=== PATIENT | female | born 1980 | race Two or more races ===

== ENCOUNTER 2019-03-14 22:41 | Inpatient (IN) | payer SELFPAY ==
[~2019-03-14 22:41] MED LIST: FOLI1TAB16 PO; PANT40TA2 PO; THIA100T13 PO
[2019-03-14] MEDS ORDERED: CEFTRIAXONE 1GM BAG (ER ONLY) 50 ML IV ONE ×2 (23:23→23:30)
[2019-03-14] MEDS ORDERED: IV NS 0.9% 500 ML BAG IV ONE (23:30)
[2019-03-15] MEDS ORDERED: POTASSIUM CHLORIDE 20 MEQ TAB.PRT.SR PO ONE ×2 (01:00→01:08)
[2019-03-15] MEDS ORDERED: ONDANSETRON HCL/PF 4 MG/2 ML VIAL IVP PRN (02:30)
[2019-03-15] MEDS ORDERED: Z GUARD REMEDY 2 OZ OINT TP PRN (02:30)
[2019-03-15] MEDS: IV NS 0.9% 1,000 ML IV PRN (03:14)
[2019-03-15] MEDS ORDERED: PANTOPRAZOLE 40 MG VIAL IV SCH (09:00)
[2019-03-15] MEDS: NEXIUM 40 MG VIAL IV SCH ×2 (09:58→21:10)
[2019-03-15] MEDS: Magnesium 1GM/D5W 100ML PREMIX 100 ML IV SCH ×2 (11:10→13:24)
[2019-03-15] MEDS: POTASSIUM CHLORIDE 20 MEQ TAB.PRT.SR PO SCH ×2 (13:24→15:24)
[2019-03-15] MEDS ORDERED: NEUTRA PHOS 1 POWD.PACKET NG ONE (14:00)
[2019-03-15] MEDS: CEFTRIAXONE 2 G in IV D5W 100 ML IV SCH (22:02)
[2019-03-16] MEDS: IV NS 0.9% 1,000 ML IV PRN (05:27)
[2019-03-16] MEDS: NEXIUM 40 MG VIAL IV SCH ×2 (08:55→20:38)
[2019-03-16] MEDS ORDERED: POTASSIUM CHLORIDE 20 MEQ TAB.PRT.SR PO ONE (11:00)
[2019-03-16] MEDS: LACTULOSE 10 G/15 ML UDC (PYXIS) PO PRN (15:48)
[2019-03-16] MEDS: CEFTRIAXONE 2 G in IV D5W 100 ML IV SCH (22:19)
[2019-03-17] MEDS: NEXIUM 40 MG VIAL IV SCH ×2 (09:16→21:30)
[2019-03-17] MEDS: POTASSIUM CL. PREMIX PERIPHER. 50 ML IV SCH ×4 (14:04→17:12)
[2019-03-17] MEDS: LACTULOSE 10 G/15 ML UDC (PYXIS) PO PRN ×2 (14:20→21:40)
[2019-03-17] MEDS: IV NS 0.9% 1,000 ML IV PRN (15:36)
[2019-03-17] MEDS: MORPHINE SULFATE INJ 2 MG/ML DISP.SYRIN IV PRN (15:45)
[2019-03-17] MEDS: CEFTRIAXONE 2 G in IV D5W 100 ML IV SCH (22:32)
[2019-03-18] MEDS: POTASSIUM CL. PREMIX PERIPHER. 50 ML IV SCH ×5 (08:29→12:33)
[2019-03-18] MEDS: NEXIUM 40 MG VIAL IV SCH ×2 (08:29→20:11)
[2019-03-18] MEDS: IV NS 0.9% 1,000 ML IV PRN (09:30)
[2019-03-18] MEDS: MORPHINE SULFATE INJ 2 MG/ML DISP.SYRIN IV PRN (21:30)
[2019-03-18] MEDS: CEFTRIAXONE 2 G in IV D5W 100 ML IV SCH (22:15)
[2019-03-19] MEDS: IV NS 0.9% 1,000 ML IV PRN (05:37)
[2019-03-19] MEDS: NEXIUM 40 MG VIAL IV SCH (08:38)
[2019-03-19] MEDS ORDERED: LACT10SO PO (11:13)
[2019-03-19] MEDS ORDERED: POTASSIUM CHLORIDE 20 MEQ TAB.PRT.SR PO ONE (11:30)
== END 2019-03-19 10:35 | disposition home or self-care (01) | DRG 441 ==
DX: K72.90 Hepatic failure, unspecified without coma (principal); K65.2 Spontaneous bacterial peritonitis; D61.818 Other pancytopenia; K76.6 Portal hypertension; E87.1 Hypo-osmolality and hyponatremia; D68.9 Coagulation defect, unspecified; K70.31 Alcoholic cirrhosis of liver with ascites; D63.8 Anemia in other chronic diseases classified elsewhere; E87.6 Hypokalemia; F10.20 Alcohol dependence, uncomplicated; K70.11 Alcoholic hepatitis with ascites